=== PATIENT | female | born 1950 | race Caucasian/White ===

== ENCOUNTER → 2018-07-07 07:52 | Outpatient (CLI) | payer OTHER, SELFPAY ==
[2018-06-28 08:20] VITALS: BMI 28.0
--- NOTE | 2018-07-07 07:53 | ECHOD_ITS ---
Reason For Study: HTN Procedure This was a 2D Doppler, Color Flow transthoracic echocardiogram. Exam performed in department. Left Ventricle Normal LV size. Mid cavitary false tendon noted. Left ventricular systolic function is normal. The estimated ejection fraction is 55 %. Stage 1 diastolic dysfunction. No regional wall motion abnormalities noted. Right Ventricle Normal RV size. Normal systolic function. Atria Normal left atrium. Normal right atrium. Mitral Valve Normal mitral valve. Mild (1+) eccentric mitral valve insufficiency. Tricuspid Valve Normal tricuspid valve. Mild (1+) tricuspid valve insufficiency. Aortic Valve Trisinus/trileaflet aortic valve. Mild focal aortic valve calcification. Pulmonic Valve Normal pulmonic valve. Great Vessels Normal aortic root. The pulmonary artery is normal size. Normal inferior vena cava. Pericardium/Pleural No pericardial effusion. MMode/2D Measurements & Calculations LVIDd: 5.1 cm IVSd: 0.95 cm Ao root diam: 3.6 cm LVIDs: 3.7 cm LVPWd: 0.90 cm RVDd: 3.1 cm FS: 28.1 % LAV(MOD-bp): 49.2 ml EDV(MOD-sp4): 87.3 ml EDV(MOD-sp2): 65.7 ml LAV(MOD-bp) Indexed: 28.6 ml/m2 ESV(MOD-sp4): 33.3 ml EF(MOD-sp2): 61.9 % LAV(MOD-sp2): 51.5 ml EF(MOD-sp4): 61.9 % LAV(MOD-sp4): 45.8 ml SV(MOD-sp4): 54.0 ml SV(MOD-sp2): 40.7 ml LA A4 area: 17.0 cm2 LA dimension(2D): 4.2 cm RA A4 area: 11.2 cm2 Time Measurements MV dec time: 0.17 sec Doppler Measurements & Calculations MV E max zain: 63.9 cm/sec Lat Peak E' Zain: 7.4 cm/sec Med Peak E' Zain: 5.3 cm/sec MV A max zain: 80.8 cm/sec E/E' lat: 8.6 E/E' med: 12.0 MV E/A: 0.79 Ao V2 max: 197.2 cm/sec LV V1 max: 83.0 cm/sec Ao max P.9 mmHg LV V1 max P.8 mmHg Interpretation Summary Normal LV size. Mid cavitary false tendon noted. Left ventricular systolic function is normal. The estimated ejection fraction is 55 %. Mild (1+) eccentric mitral valve insufficiency. Ordering Physician: Belinda Strange Referring Physician: Belinda Strange Performed By: Gemini Skinner, RDCS, RVT
--- NOTE | 2018-07-07 08:39 | EKG12_ITS ---
Test Reason : RHYTHM CHECK Blood Pressure : / mmHG Vent. Rate : 071 BPM Atrial Rate : 071 BPM P-R Int : 178 ms QRS Dur : 084 ms QT Int : 410 ms P-R-T Axes : 028 -04 032 degrees QTc Int : 445 ms Normal sinus rhythm Nonspecific ST and T wave abnormality Abnormal ECG Confirmed by ALEX FRANCO, AJITH ([id number]), editor greeting card PRISCILLA ARANA ([id number]) on 07/11/2018 10:15:07 AM Referred By: Belinda Strange Confirmed By:AJITH JOHNSON MD
== END ==
PROVIDERS: Family Provider Internal Medicine; PCP Internal Medicine; Referring Provider Internal Medicine; Visit Provider Internal Medicine
DX: I10 Essential (primary) hypertension (principal); I49.3 Ventricular premature depolarization; I34.0 Nonrheumatic mitral (valve) insufficiency; I07.1 Rheumatic tricuspid insufficiency; I70.0 Atherosclerosis of aorta
CPT/HCPCS: 93005; 93306

== ENCOUNTER → 2019-02-07 09:12 | Outpatient (CLI) | payer MEDICARE, SELFPAY ==
[2019-02-03 09:39] VITALS: BMI 28.0
[2019-02-07 10:31] LABS: Absolute Lymphocyte Count 2.03 X10^3/uL (0.83-4.51); Absolute Neutrophil Count 2.6 X10^3/uL (2.0-7.7); Basophil# 0.04 X10^3/uL; Basophil% 0.8 % (0-1); Eosinophil# 0.15 X10^3/uL; Eosinophils% 2.9 % (0-5); Hematocrit 41.7 % (37-47); Hemoglobin 13.9 g/dL (12.0-15.0); Lymphocyte # 2.03 X10^3/ul (4.0); Lymphocyte % 38.8 % (19-41); Mean Corp Hgb Conc 33.3 g/dL (32-36); Mean Corpuscular Hgb 32.4 pg (27.0-32.0); Mean Corpuscular Volume 97.2 fL (81-99); Mean Platelet Vol. 9.9 fl (6.2-12.0); Monocyte# 0.42 X10^3/uL; NRBC Flagged by Analyzer 0 % (0-5); Neutrophil # 2.58 X10^3/uL (2.7-7.7); Neutrophil % 49.3 % (47-70); Platelet Count 238 K/mm3 (150-450); RBC Distribution Width CV 12.6 % (11.6-14.6); Red Blood Count 4.29 M/mm3 (4.2-5.4); White Blood Count 5.2 K/mm3 (4.4-11.0)
[2019-02-07 11:16] LABS: AST(SGOT) 28 U/L (15-37); Alanine Aminotransfer ALT/SGPT 37 U/L (13-56); Albumin, Serum 3.8 g/dL (3.2-5.0); Alkaline Phosphatase 77 U/L (45-117); Anion Gap 6 (5-15); BUN 15 mg/dL (7-18); BUN/Creat Ratio 17.1 RATIO (10-20); Calcium,Total 9.2 mg/dL (8.5-10.1); Chloride 106 mmol/L (98-107); Cholesterol 226 mg/dL (200); Creatinine, Serum 0.88 mg/dL (0.55-1.02); EST Glomerular Filtration Rate 68 mL/min (>60); Est Glom Filt Rate - Afr Amer 82 mL/min (>60); Glucose 92 mg/dL (74-106); High Density Lipoprotein 104 mg/dL; Potassium 4.3 mmol/L (3.5-5.1); Protein, Total 7.8 g/dL (6.4-8.2); Sodium Level 140 mmol/L (136-145); Thyroid Stim Hormone (TSH) 1.84 uIU/mL (0.358-3.74); Triglycerides 64 mg/dL; Very Low Density Lipoprotein 13 mg/dL (5-40)
== END ==
PROVIDERS: Family Provider Internal Medicine; PCP Internal Medicine; Referring Provider Internal Medicine; Visit Provider Internal Medicine
DX: I10 Essential (primary) hypertension (principal); I49.3 Ventricular premature depolarization
CPT/HCPCS: 36415; 80053; 80061; 84439; 84443; 85025